=== PATIENT | male | born 1960 | race Caucasian/White ===

== ENCOUNTER 2016-12-24 07:46 | Inpatient (IN) | payer SELFPAY ==
[~2016-12-24] VITALS: Ht 188 cm; Wt 111.1 kg
[2016-12-24 09:08] LABS: BASOPHILS % 0.6 % (0.0-2.0); DIFFERENTIAL COMMENT 0; EOSINOPHILS % 1.4 % (0.0-5.0); HEMATOCRIT. 42.9 % (42.0-52.0); HEMOGLOBIN. 14.6 g/dL (14.0-18.0); LYMPHOCYTES % 20.8 % (20.0-50.0); MEAN CORPUSCULAR HEMOGLOBIN 34.8 pg (28.0-32.0); MEAN CORPUSCULAR HGB CONC 34.1 g/dL (31.0-37.0); MEAN CORPUSCULAR VOLUME 102.1 fL (80.0-94.0); MEAN PLATELET VOLUME 7.2 fl (7.4-10.4); NEUTROPHILS % 69.2 % (40.0-76.0); PLATELET 268 x1000/uL (130-400); RED BLOOD CELL COUNT 4.21 mill/uL (4.7-6.1); RED CELL DISTRIBUTION WIDTH 16.6 % (11.6-14.6); WHITE BLOOD COUNT 6.3 x1000/uL (4.5-11.0)
[2016-12-24 09:10] LABS: CHLORIDE 105 mEq/L (98-107); INDEX HEMOLYSI 1 (1-3); INDEX ICTERIC 1 (1-4); INDEX LIPEMIC 1 (1-3)
[2016-12-24 09:11] LABS: PARTIAL THROMBOPLASTIN TIME 25.9 sec (24.0-34.0); PROTHROMBIN TIME 10.7 sec
[2016-12-24] MEDS ORDERED: MORPHINE SULFATE 4 MG/ML CPJ (NOT FOR IM USE) IV ONE (09:15)
[2016-12-24] MEDS ORDERED: ASPIRIN 325MG EC TABLET PO ONE (09:15)
[2016-12-24 09:20] LABS: ALANINE AMINOTRANSFERASE 53 IU/L (13-61); ALBUMIN 3.6 g/dL (3.4-5.0); ANION GAP 15; CALCIUM 8.7 mg/dL (8.5-10.1); CARBON DIOXIDE 24 mEq/L (21-32); LIPASE 172 IU/L (73-393); NT PRO B-TYPE NATRIURETIC PEP 62 pg/mL (5-125); TROPONIN I < 0.02 ng/mL (0.00-0.04); UREA NITROGEN BLOOD 10 mg/dL (7-21); eGFR > 60 mL/min (>60)
[2016-12-24] MEDS ORDERED: MORPHINE SULFATE 2 MG/ML CPJ (NOT FOR IM USE) IV ONE (12:00)
[2016-12-24] MEDS ORDERED: NA PHOS,M-B/NA PHOS,DI-BA ENEMA 118ML PR PRN (12:30)
[2016-12-24] MEDS ORDERED: ACETAMINOPHEN 325MG TABLET PO PRN (12:30)
[2016-12-24] MEDS ORDERED: ONDANSETRON HCL 4MG/2ML VIAL IV PRN (12:30)
[2016-12-24] MEDS ORDERED: DOCUSATE SODIUM 100MG CAPSULE PO PRN (12:30)
[2016-12-24] MEDS ORDERED: CLONIDINE 0.1MG TABLET PO PRN (12:30)
[2016-12-24] MEDS ORDERED: NITROGLYCERIN 0.4MG TABLET SL SL PRN (12:30)
[2016-12-24] MEDS ORDERED: ENOXAPARIN 40MG/0.4ML SYR SUBCUT SCH (12:30)
[2016-12-24] MEDS ORDERED: GUAIFENESIN 200MG/10ML SUGAR FREE UDC PO PRN (12:30)
[2016-12-24] MEDS ORDERED: IPRATROPIUM/ALBUTEROL 0.5-3(2.5)MG/3ML NEB INH PRN (12:30)
[2016-12-24] MEDS ORDERED: MAGNESIUM/ALUMINUM HYDROXIDE/SIMETHICONE 30ML UDC PO PRN (12:30)
[2016-12-24] MEDS ORDERED: IOHEXOL-350 100 ML BOTTLE ONE (13:13)
[2016-12-24] MEDS ORDERED: SODIUM CHLORIDE 0.9% 10ML VIAL ONE (13:13)
[2016-12-24 14:00] VITALS: BP 147/111
[2016-12-24 14:07] VITALS: BP 147/111
[2016-12-24] MEDS ORDERED: POTASSIUM CHLORIDE 20MEQ TABLET SR PO NR (14:18)
[2016-12-24] MEDS ORDERED: ENOXAPARIN 120MG/0.8ML SYR SUBCUT NR ×2 (15:30→23:30)
[2016-12-24] MEDS: KETOROLAC 15MG/ML VIAL IV PRN ×2 (15:36→21:28)
[2016-12-24 16:00] VITALS: BP 120/79
[2016-12-24] MEDS ORDERED: APIXABAN 5 MG TABLET PO SCH (17:00)
[2016-12-24 17:05] LABS: ETHANOL BLOOD < 10 mg/dL; HDL CHOLESTEROL 67 mg/dL (40-59); INDEX HEMOLYSI 1 (1-3); INDEX ICTERIC 1 (1-4); INDEX LIPEMIC 1 (1-3); LDL CHOLESTEROL 78 mg/dL (5-100); TRIGLYCERIDE 76 mg/dL (0-150)
[2016-12-24 17:07] LABS: CREATINE KINASE 99 IU/L (39-308); CREATINE KINASE MB FRACTION 0.9 ng/mL (0.5-3.6); INDEX HEMOLYSI 1 (1-3); TROPONIN I < 0.02 ng/mL (0.00-0.04)
[2016-12-24] MEDS ORDERED: RANI-84 PO (17:39)
[2016-12-24] MEDS: TRAMADOL 50MG TABLET PO PRN (19:36)
[2016-12-24 20:00] VITALS: BP 115/74
[2016-12-24] MEDS: ZOLPIDEM TARTRATE 5MG TABLET PO PRN (20:14)
[2016-12-24] MEDS: METOPROLOL TARTRATE 25MG TABLET PO SCH (20:25)
[2016-12-24 20:42] LABS: FOLIC ACID (FOLATE) SERUM 3.4 ng/mL (>5.38)
[2016-12-24] MEDS: LISINOPRIL 20MG TABLET PO SCH (21:00)
[2016-12-24] MEDS: LORAZEPAM 2MG/ML CPJ IV PRN (21:28)
[2016-12-24 22:45] LABS: CREATINE KINASE 85 IU/L (39-308); CREATINE KINASE MB FRACTION 0.7 ng/mL (0.5-3.6); INDEX HEMOLYSI 1 (1-3); TROPONIN I < 0.02 ng/mL (0.00-0.04)
[2016-12-25] MEDS: TRAMADOL 50MG TABLET PO PRN ×3 (00:34→20:04)
[2016-12-25 01:24] LABS: *AMPHETAMINES SCREEN URINE NEGATIVE (NEGATIVE); *BARBITURATES SCREEN URINE NEGATIVE (NEGATIVE); *BENZODIAZEPINES SCREEN URINE PRESUMTIVE POSITIVE (NEGATIVE); *COCAINE SCREEN URINE NEGATIVE (NEGATIVE); CANNABINOID URINE SCREEN NEGATIVE (NEGATIVE); ECSTASY MDMA SCREEN URINE NEGATIVE (NEGATIVE); METHADONE URINE SCREEN NEGATIVE (NEGATIVE); OPIATES URINE SCREEN PRESUMTIVE POSITIVE (NEGATIVE); PHENCYCLIDINE URINE SCREEN NEGATIVE (NEGATIVE)
[2016-12-25] MEDS: LORAZEPAM 2MG/ML CPJ IV PRN ×2 (02:16→23:00)
[2016-12-25 04:00] VITALS: BP 135/97
[2016-12-25] MEDS: KETOROLAC 15MG/ML VIAL IV PRN ×4 (04:01→21:24)
[2016-12-25 08:00] VITALS: BP 127/93
[2016-12-25] MEDS: PANTOPRAZOLE SODIUM 40 MG/VIAL IV SCH (08:42)
[2016-12-25] MEDS: ASPIRIN 325MG EC TABLET PO SCH (08:42)
[2016-12-25] MEDS: METOPROLOL TARTRATE 25MG TABLET PO SCH ×2 (08:43→20:05)
[2016-12-25] MEDS: LISINOPRIL 20MG TABLET PO SCH ×2 (08:50→21:00)
[2016-12-25] MEDS: ENOXAPARIN 120MG/0.8ML SYR SUBCUT SCH ×2 (08:56→20:05)
[2016-12-25 12:00] VITALS: BP 137/97
[2016-12-25 16:00] VITALS: BP 137/97
[2016-12-25] MEDS: ZOLPIDEM TARTRATE 5MG TABLET PO PRN ×2 (16:20→21:17)
[2016-12-25 20:00] VITALS: BP 155/100
[2016-12-26] VITALS: BP 118/75
[2016-12-26] MEDS: KETOROLAC 15MG/ML VIAL IV PRN ×2 (05:34→12:09)
[2016-12-26 08:00] VITALS: BP 130/85
[2016-12-26] MEDS: LISINOPRIL 20MG TABLET PO SCH (08:36)
[2016-12-26] MEDS: PANTOPRAZOLE SODIUM 40 MG/VIAL IV SCH (08:36)
[2016-12-26] MEDS: ASPIRIN 325MG EC TABLET PO SCH (08:36)
[2016-12-26] MEDS: METOPROLOL TARTRATE 25MG TABLET PO SCH (08:37)
[2016-12-26] MEDS: ENOXAPARIN 120MG/0.8ML SYR SUBCUT SCH (08:38)
[2016-12-26 12:24] VITALS: BP 152/106
== END 2016-12-26 13:05 | disposition home or self-care (01) | DRG 134 ==
LOC: ER 07:47 → 5WST 11:43
PROVIDERS: ADMIT Internal Medicine; ATTEND Internal Medicine
DX: I26.99 Other pulmonary embolism without acute cor pulmonale (principal); I11.9 Hypertensive heart disease without heart failure; I10 Essential (primary) hypertension; E87.6 Hypokalemia; Z86.711 Personal history of pulmonary embolism; Z86.718 Personal history of other venous thrombosis and embolism
CPT/HCPCS: 36415; 71010; 71275; 80053; 80061; 80305; 82550; 82553; 82607; 82746; 83036; 83690; 83880; 84484; 85025; 85610; 85730; 93005; 93306; 93970; 96374; 96376; 99285; A4216; C9113; G0482; J1650; J1885; J2060; J2270; J2405; Q9967